=== PATIENT | female | born 1955 | race Caucasian/White ===

== ENCOUNTER 2017-01-19 05:54 | Day surgery (SDC) | payer BC ==
[~2017-01-19] VITALS: Ht 157.5 cm; Wt 62.2 kg
[2017-01-19 06:53] VITALS: Ht 157.5 cm; Wt 62.2 kg
[2017-01-19] MEDS ORDERED: ATORVASTATIN (06:58)
[2017-01-19] MEDS ORDERED: HYDROCHLOROTHIAZIDE (06:58)
[2017-01-19] MEDS ORDERED: LEVOTHYROXINE (06:58)
[2017-01-19] MEDS ORDERED: AMLODIPINE (06:58)
[2017-01-19 07:23] VITALS: BP 134/68; PULSE 60; RESP 14
--- NOTE | 2017-01-19 07:53 | OPPN ---
Date/Time of Note Date/Time of Note DATE: 01/19/17 TIME: 07:51 Operative Report Preoperative Diagnosis Rectal bleeding Postoperative Diagnosis Internal and external hemorrhoids Diverticulosis of the colon Operation/Procedure Performed Colonoscopy Surgeon see signature line legal administrative assistant None Anesthesia: moderate sedation Estimated blood loss: none Transfusion Required none Specimen None Grafts/Implants none Complications none ISRAEL VIRGEN MD Jan 19, 2017 07:53
--- NOTE | 2017-01-19 07:53 | OPPN ---
Date/Time of Note Date/Time of Note DATE: 01/19/17 TIME: 07:51 Operative Report Preoperative Diagnosis Rectal bleeding Postoperative Diagnosis Internal and external hemorrhoids Diverticulosis of the colon Operation/Procedure Performed Colonoscopy Surgeon see signature line child care [facility] assistant director None Anesthesia: moderate sedation Estimated blood loss: none Transfusion Required none Specimen None Grafts/Implants none Complications none ISRAEL VIRGEN MD Jan 19, 2017 07:53
--- NOTE | 2017-01-19 07:53 | OPPN ---
Date/Time of Note Date/Time of Note DATE: 01/19/17 TIME: 07:51 Operative Report Preoperative Diagnosis Rectal bleeding Postoperative Diagnosis Internal and external hemorrhoids Diverticulosis of the colon Operation/Procedure Performed Colonoscopy Surgeon see signature line patient support assistant None Anesthesia: moderate sedation Estimated blood loss: none Transfusion Required none Specimen None Grafts/Implants none Complications none ISRAEL VIRGEN MD Jan 19, 2017 07:53
[2017-01-19] MEDS ORDERED: FENTAnyl 50 MCG/ML VIAL ONE (07:57)
[2017-01-19] MEDS ORDERED: MIDAZOLAM 1 MG/ML 2 ML INJ ONE (07:57)
[2017-01-19 08:14] VITALS: BP 107/59; PULSE 59; RESP 14
--- NOTE | 2017-01-19 09:36 | GILP ---
DATE OF PROCEDURE: NAME OF PROCEDURE: Colonoscopy. SURGEON: Israel Diamond MD PREOPERATIVE DIAGNOSES: Rectal bleeding. POSTOPERATIVE DIAGNOSES 1. Colonoscopy all the way to the cecum. 2. Internal and external hemorrhoids. 3. Diverticulosis of the colon. INDICATION FOR THE PROCEDURE: Mr. Ayesha Olmos is a 61-year-old female patient who had rectal blee ding. The patient was scheduled for colonoscopy for further evaluation. The procedure and possible complications are well explained to the patient, she understood and conse nted to the procedure. DESCRIPTION OF PROCEDURE: Under the influence of fentanyl and Versed, the colonoscope was carefully introduced in the rectum and under direct vision, it was advanced all the way to the cecum. FINDINGS: The patient had internal and external hemorrhoids. She was noted to have diverticulosis of the colon. She tolerated the procedure very well and there was no complication from the procedure. At the end of the procedure, she was awake with stable vital signs and she was discharged home to the care of h er family. IMPRESSION: 1. Colonoscopy all the way to the cecum. 2. Internal and external hemorrhoids. 3. Diverticulosis of the colon. PLAN: 1. Lidocaine 5% cream or ointment q.i.d. p.r.n. for pain. 2. Sitz bath. 3. If the symptoms continue, may consider hemorrhoidectomy. Dictated By: ISRAEL WINTERS/YENNY Conf#: [id number] DID#: [id number]
--- NOTE | 2017-01-20 08:01 | CONS ---
DATE OF ADMISSION: 01/19/2017 DATE OF CONSULTATION: PATIENT NAME: TRACI BERRY TYPE OF CONSULTATION: Preoperative gastroenterology. Dear : I thank you very much for this kind referral. HISTORY OF PRESENT ILLNESS: Ms. Traci Berry is a 61-year-old female patient who has been referred to me for further evaluation of rectal bleeding. No past history of colon neoplasm. Her appetite has been good and she is not losing any weight. No upper abdominal pain, nausea or vomiting, no his tory of peptic ulcer disease, not on nonsteroidal anti-inflammatory agents. No history of gallstone s or liver disease, hypertensive. Not a diabetic, no heart disease or lung problem. No kidney dise ase. She has hyperlipidemia and hypothyroidism. She is status post hysterectomy, nonsmoker. No al cohol abuse, no family history of gastrointestinal tract neoplasm. NO DRUG ALLERGIES. MEDICATIONS: 1. Amlodipine. 2. Hydrochlorothiazide. 3. Atorvastatin. 4. Levothyroxine. PHYSICAL EXAMINATION: VITAL SIGNS: She is 5 feet 2 inches tall and weighs 138 pounds, normal heart sounds. LUNGS: Clear. ABDOMEN: Soft. No masses, normal bowel sounds. RECTAL: Examination deferred per the patient's request. NEUROLOGIC: Normal exam. IMPRESSION: 1. Rectal bleeding. 2. The patient never had screening colonoscopy. 3. Hypertension. 4. Hyperlipidemia. 5. Hypothyroidism. 6. Status post hysterectomy. PLAN: 1. Colonoscopy for further evaluation. Rectal examination deferred per the patient's request. It will be done at the time of colonoscopy. 2. Lidocaine 5% cream ointment q.i.d. p.r.n. The procedure and possible complications are well explained to the patient and the family. They und erstand and consent to the procedure. I thank you once again. With warmest personal regards, Dictated By: ISRAEL WINTERS/YENNY Conf#: [id number] DID#: [id number]
== END 2017-01-19 10:33 | disposition home or self-care (01) ==
LOC: GIL 05:54
PROVIDERS: ATTEND Internal Medicine Gastroenterology
DX: K64.8 Other hemorrhoids (principal); K57.90 Diverticulosis of intestine, part unspecified, without perforation or abscess without bleeding; I10 Essential (primary) hypertension; E78.5 Hyperlipidemia, unspecified; E03.9 Hypothyroidism, unspecified
CPT/HCPCS: 45378; J2250; J3010

== ENCOUNTER 2017-01-21 09:34 | Inpatient (IN) | payer BC ==
[~2017-01-21] VITALS: Ht 157.5 cm; Wt 70.0 kg
[~2017-01-21 09:34] MED LIST: AMLODIPINE; ATORVASTATIN; HYDROCHLOROTHIAZIDE; LEVOTHYROXINE
[2017-01-21] MEDS ORDERED: morphine 4 MG/ML VIAL IV STA (10:07)
[2017-01-21] MEDS ORDERED: ONDANSETRON 4 MG INJ IV STA ×3 (10:07→13:38)
[2017-01-21] MEDS ORDERED: SOD CHLORIDE 0.9% 1,000 ML IV STA (10:07)
[2017-01-21] MEDS ORDERED: LEVO50TA74 PO (10:45)
[2017-01-21] MEDS ORDERED: HYDR25TA6 PO (10:45)
[2017-01-21] MEDS ORDERED: IOHEXOL 300MG/ML 150 ML BTL ONE (10:49)
[2017-01-21] MEDS ORDERED: SOD CHLORIDE 0.9% 100 ML ONE (10:49)
[2017-01-21] MEDS ORDERED: HYDROmorphONE 1 MG/ML SYG IV STA (10:53)
--- NOTE | 2017-01-21 11:21 | RADRPT ---
PROCEDURE: CT Abdomen and Pelvis with contrast. CLINICAL INDICATION: Abdominal pain. TECHNIQUE: CT scan of the abdomen and pelvis with contrast was performed on a multi-detector high- resolution CT scanner. The patient was scanned following the intravenous administration of 90 cc of Omnipaque 300. Per the technologist, some of the contrast infiltrated. Coronal and sagittal reform atted images were obtained from the axial source images. One or more of the following dose reduction techniques were used: Automated exposure control, adjustment of the mA and/or kV according to patel ent size, use of iterative reconstruction technique. Images were reviewed on a high-resolution PACS workstation. The total exam CTDI equals 8.13 mGy and the total exam DLP equals 458.79 mGy-cm. COMPARISON: None available. FINDINGS: CT abdomen: Minimal bilateral lower lobe dependent atelectatic changes are present. Otherwise, the lung bases are clear. The heart size is normal, without pericardial thickening or effusion. There is a small hiatal hernia. The liver is normal in size and density without focal mass or intrahepatic biliary dilatation. The spleen is normal in size and homogeneous in density. The stomach is partially collapsed, but is megha ssly unremarkable. The pancreas as visualized is normal. The gallbladder is unremarkable. The melvi iary tree is unremarkable without evidence for biliary dilatation. The adrenal glands are symmetric and normal. The kidneys are unremarkable. No renal calculus or obstructive uropathy or mass lesio n is seen. The aorta is of normal caliber. There is no retroperitoneal lymphadenopathy. The mya hepatis re gion is clear. The small bowel and mesentery, as visualized, are unremarkable. CT pelvis: The small bowel loops situated within the pelvis are unremarkable. The uterus is absent. The pelvi c sidewalls and inguinal regions are clear. There is a acute inflammation of a diverticulum within the proximal sigmoid colon with adjacent yaritza diverticular fat stranding and colonic wall edema. The re is no evidence of free air or abscess. The appendix is normal. No mass, lymphadenopathy, or free fluid is seen. The bladder is normal. The surrounding osseous structures are unremarkable. No osteolytic or osteoblastic lesion is detect ed. IMPRESSION: 1. Acute diverticulitis involving the proximal sigmoid colon. No evidence of associated abscess or free intraperitoneal air. 2. Small hiatal hernia. RPTAT: JJ .Vern Mullins MD, MD Date Time Electronically viewed and signed by .Vern Mullins MD, MD on 01/21/2017 11:20 .A/
[2017-01-21] MEDS ORDERED: KETOROLAC 30 MG INJ IV STA (11:24)
[2017-01-21] MEDS ORDERED: HYDR-906 PO (11:28)
[2017-01-21] MEDS ORDERED: METR500T14 PO (11:28)
[2017-01-21] MEDS ORDERED: CIPR500T4 PO (11:28)
[2017-01-21] MEDS ORDERED: CIPROFLOXACIN 400MG/D5W 200 ML IVPB ONE (11:30)
[2017-01-21] MEDS ORDERED: metroNIDAZOLE 500 MG/NS (PMX) 100 ML IVPB ONE (11:30)
--- NOTE | 2017-01-21 13:02 | ERD ---
ER Documentation Chief Complaint Chief Complaint ABD PAIN X 2 DAYS WITH NAUSEA/VOMITING HPI This is a very pleasant 61-year-old female that presents to the emergency department complaining of a sudden onset of severe abdominal pain that is progressively worsened over the past 48 hours. 2 days ago the patient underwent colonoscopy performed by Dr. Hutchins. The patient indicated there is no complications with the colonoscopy. She states several hours after she developed a sudden onset of severe pain most prominent in the left lower quadrant with nausea and a decrease in appetite. She has had no fevers no shaking or chills. She denies any shortness of breath at rest or exertion. She denies any chest pain or pressure that radiates to the neck arm back or jaw. She indicates that the pain is a sharp shooting pain, 10 out of 10 in intensity with no alleviating or exacerbating factors. Denies any hemoptysis hematemesis or melanotic stools. ROS All systems reviewed and are negative except as per history of present illness. Medications Home Meds Active Scripts Metronidazole* (Metronidazole*) 500 Mg Tablet, 500 MG PO BID, #20 TAB Prov:ADRIANNE ALVAREZ 01/21/17 Ciprofloxacin Hcl* (Ciprofloxacin Hcl*) 500 Mg Tablet, 500 MG PO BID for 10 Days , TAB Prov:ADRIANNE ALVAREZ 01/21/17 Hydrocodone/Acetaminophen (Quilcene 5-325 Tablet) 1 Each Tablet, 1 TAB PO Q6H Y for PAIN, #20 TAB Prov:ADRIANNE ALVAREZ 01/21/17 Reported Medications Levothyroxine Sodium* (Levothyroxine Sodium*) 50 Mcg Tablet, 50 MCG PO BEFORE BREAKFAST, #30 TAB 01/21/17 Hydrochlorothiazide* (Hydrochlorothiazide*) 25 Mg Tab, 25 MG PO DAILY, #30 TAB 01/21/17 Discontinued Reported Medications [Amlodipine] No Conflict Check 01/19/17 [Levothyroxine] No Conflict Check 01/19/17 [Hydrochlorothiazide] No Conflict Check 01/19/17 [Atorvastatin] No Conflict Check 01/19/17 Allergies Allergies: Coded Allergies: No Known Allergy (Unverified , 01/19/17) PMhx/Soc History of Surgery: Yes (HYSTERECTOMY) Anesthesia Reaction: No Hx Neurological Disorder: No Hx Respiratory Disorders: No Hx Cardiac Disorders: Yes (HYPERTENSION) Hx Psychiatric Problems: No Hx Miscellaneous Medical Probl: Yes (HYPERLIPIDEMIA, Hypothyroidism.) Hx Alcohol Use: No Hx Substance Use: No Hx Tobacco Use: No Smoking Status: Never smoker Physical Exam Vitals Vital Signs Date Time Temp Pulse Resp B/P Pulse Ox O2 Delivery O2 Flow Rate FiO2 01/21/17 13:03 65 18 90/58 100 Nasal Cannula 2.0 01/21/17 09:37 99.2 77 18 159/85 98 Physical Exam Constitutional:Well-developed. Well-nourished. She appear to be in a significant amount of discomfort secondary to pain. Tearful HEENT:Normocephalic. Atraumatic.Pupils were equal round reactive to light. Moist mucous membranes.No tonsillar exudates. Neck: No nuchal rigidity. No lymphadenopathy. No posterior cervical spine tenderness or step-offs. Respiratory: Not using accessory muscles of respiration.Lungs were clear to auscultation bilaterally. No rhonchi. No rales. No wheezing. Cardiovascular: Regular rate regular rhythm.No murmurs. No rubs were appreciated.S1, S2 normal. Distal pulses are palpable 2+ bilaterally. GI: Abdomen was soft. Tenderness in the left lower quadrant. Non Distended. No pulsatile abdominal masses or bruits. No rebound. No guarding. Bowel sounds were present and normal. Muscle skeletal: Full range of motion of both the upper and lower extremities bilaterally.Normal muscle tone.No assymetrical calf tenderness or swelling. Skin: No petechia, no purpura. No lesions on the palms or the soles of the feet. No maculopapular rash. NEURO: Patient was alert, awake, orientated x3.No facial droop. Gait observed and normal with no ataxia.Speech had regular rate and rhythm. No focal neurological deficits. Result Diagram: 01/21/17 1000 01/21/17 1000 Results 24 hrs Laboratory Tests Test 01/21/17 10:00 White Blood Count 11.610^3/ul Red Blood Count 4.3010^6/ul Hemoglobin 12.9g/dl Hematocrit 38.1% Mean Corpuscular Volume 88.6fl Mean Corpuscular Hemoglobin 30.0pg Mean Corpuscular Hemoglobin Concent 33.9g/dl Red Cell Distribution Width 12.1% Platelet Count 13303^3/UL Mean Platelet Volume 11.9fl Neutrophils % 74.9% Lymphocytes % 18.8% Monocytes % 5.3% Eosinophils % 0.4% Basophils % 0.3% Nucleated Red Blood Cells % 0.0/100WBC Neutrophils # 8.710^3/ul Lymphocytes # 2.210^3/ul Monocytes # 0.610^3/ul Eosinophils # 0.110^3/ul Basophils # 0.010^3/ul Nucleated Red Blood Cells # 0.010^3/ul Prothrombin Time 12.7Sec Prothrombin Time Ratio 1.0 INR International Normalized Ratio 0.95 Activated Partial Thromboplast Time 30.4Sec Sodium Level 144mmol/L Potassium Level 3.6mmol/L Chloride Level 101mmol/L Carbon Dioxide Level 30mmol/L Anion Gap 17 Blood Urea Nitrogen 9mg/dl Creatinine 0.73mg/dl Glucose Level 98mg/dl Calcium Level 9.4mg/dl Total Bilirubin 1.2mg/dl Direct Bilirubin 0.00mg/dl Indirect Bilirubin 1.2mg/dl Aspartate Amino Transf (AST/SGOT) 25IU/L Alanine Aminotransferase (ALT/SGPT) 29IU/L Alkaline Phosphatase 79IU/L Troponin I < 0.012ng/ml Total Protein 8.2g/dl Albumin 4.7g/dl Globulin 3.50g/dl Albumin/Globulin Ratio 1.34 Amylase Level 91U/L Lipase 128U/L Current Medications Medications (Trade) Dose Ordered Sig/Buzz Route PRN Reason Start Time Stop Time Status Last Admin Dose Admin Sodium Chloride (NS) 1,000 ml @ 1,000 mls/hr Q1H STAT IV 01/21/17 10:07 01/21/17 11:06 DC 01/21/17 10:13 Morphine Sulfate (morphine) 4 mg ONCE STAT IV 01/21/17 10:07 01/21/17 10:08 DC 01/21/17 10:13 Ondansetron HCl (Zofran Inj) 4 mg ONCE STAT IV 01/21/17 10:07 01/21/17 10:08 DC 01/21/17 10:13 IV Flush 10 ml 10 ml STK-MED ONCE .ROUTE 01/21/17 10:49 01/21/17 10:50 DC 01/21/17 10:59 Sodium Chloride (NS) 100 ml @ ud STK-MED ONCE .ROUTE 01/21/17 10:49 01/21/17 10:50 DC 01/21/17 11:00 Iohexol (Omnipaque 300mg/ ml) 150 ml STK-MED ONCE .ROUTE 01/21/17 10:49 01/21/17 10:50 DC 01/21/17 11:00 Hydromorphone HCl (Dilaudid) 1 mg ONCE STAT IV 01/21/17 10:53 01/21/17 10:54 DC 01/21/17 11:17 Ondansetron HCl 4 mg 4 mg ONCE STAT IV 01/21/17 10:53 01/21/17 10:54 DC 01/21/17 11:17 Ciprofloxacin/ Dextrose 200 ml @ 200 mls/hr ONCE ONCE IVPB 01/21/17 11:30 01/21/17 12:29 DC 01/21/17 11:30 Metronidazole (Flagyl 500 Mg (Pmx)) 100 ml @ 100 mls/hr ONCE ONCE IVPB 01/21/17 11:30 01/21/17 12:29 DC 01/21/17 11:43 Ketorolac Tromethamine (Toradol) 30 mg ONCE STAT IV 01/21/17 11:24 01/21/17 11:33 DC 01/21/17 11:43 Ondansetron HCl (Zofran Inj) 4 mg ONCE STAT IV 01/21/17 13:38 01/21/17 13:39 DC 01/21/17 13:47 Procedures/MDM This patient presented to the emergency department with abdominal pain and was seen and evaluated by myself. My differential diagnosis included but was not limited to abdominal aortic aneurysm, appendicitis, pancreatitis, perforated peptic ulcer, perforated viscus, Boerhaaves syndrome or visceral pain such as diverticulitis, DKA, esophagitis, hepatitis or bowel obstruction. The patient was placed on a diagnostic cardiac sonographer, continuous pulse oximetry, and IV access was established by nursing staff. The patient was given intravenous morphine and Zofran with no improvement of her discomfort and therefore was given Dilaudid. CT scan of the abdomen due to the severity of her pain which was read by the radiologist reviewed by myself and indicated diverticulitis without perforation. The patient was given IV ciprofloxacin and Flagyl. I also obtained a 12-lead EKG tracing to rule out atypical myocardial infarction. 12 Lead EKG tracing ordered and reviewed by myself showed: Normal sinus rhythm of 75 bpm and no arrhythmia. NE interval normal. QRS duration normal. No ST segment elevation No ST segment depression. No changes consistent with acute ischemia. Plan was to discharge the patient home however and 1:50 PM at the time of discharge the patient dated she had recurrence of the pain and had an episode of nonbloody nonbilious emesis. The patient attempted to tolerate oral intake but was unable to do so successfully. Therefore I did feel the patient required admission for continuous IV fluids and analgesic medication. She will be admitted to the hospitalist in serious condition with an anticipated stay of greater than 2 midnights. Departure Diagnosis: Primary Impression: Diverticulitis Diverticulitis site: large intestine Diverticulitis bleeding: without bleeding Diverticulitis complication: without perforation or abscess Qualified Code: K57.32 - Diverticulitis of large intestine without perforation or abscess without bleeding Condition: Fair Patient Instructions: Understanding Diverticulosis and Diverticulitis, Diverticulitis ADRIANNE ALVAREZ Jan 21, 2017 13:02
[2017-01-21 14:18] VITALS: TEMP 99.2
[2017-01-21 14:58] VITALS: Ht 157.5 cm; Wt 70.0 kg
[2017-01-21] MEDS ORDERED: morphine 2 MG INJ IV PRN (15:00)
[2017-01-21] MEDS ORDERED: NACL 0.9% 3 ML SYG IV SCH (15:00)
[2017-01-21] MEDS ORDERED: BISACODYL 10 MG SUPP PR PRN (15:00)
[2017-01-21] MEDS ORDERED: ACETAMINOPHEN 650 MG SUPP PR PRN (15:00)
[2017-01-21] MEDS ORDERED: ONDANSETRON 4 MG INJ IV PRN (15:00)
--- NOTE | 2017-01-21 15:11 | HP ---
Date/Time of Note Date/Time of Note DATE: 01/21/17 TIME: 15:04 Assessment/Plan VTE Prophylaxis VTE Prophylaxis Intervention: SCD's Lines/Catheters IV [facility]from [facility] Saline Lock Assessment/Plan Chief Complaint/Hosp Course 61-year-old female with a history of diverticulosis, internal/external hemorrhoids presented to the emergency room with intractable left upper quadrant abdominal pain associated with a one-time nonbilious, nonbloody vomiting in the emergency room. Patient had a colonoscopy done 2 days ago. 1. Acute diverticulitis of sigmoid colon. Colonoscopy (done as outpt 01/19/17) with Diverticulosis/Internal/External hemorrhoids. -Admit as inpatient. Strict bowel rest, IV fluids, pain medications and IV Cipro plus Flagyl. -Obtain blood and urine cultures. 2. Essential hypertension. Currently her blood pressure is stable. -We will resume home medication once patient is stable for oral. Will treat with PRN hydralazine if indicated. 3. Hypothyroidism. -We will hold Synthroid until stable for oral. We will obtain a TSH level. 4. Leukocytosis, mild. Likely secondary to #1. Treatment as per #1. 5. Internal/external hemorrhoids. Currently no rectal bleed. -PRN laxatives and stool softeners. PPI prophylaxis: IV Pepcid. Plan: Patient will be admitted to medical surgical floor. She will be kept strict n.p.o. and will be treated with IV fluids, pain medications and IV Cipro and Flagyl. I have also left a message to patient's electrical engineering technologist about his admission as patient had a very recent colonoscopy 2 days ago. Rest of the management depend on hospital course. Approximately 60 minutes was spent on this history and physical. Patient was seen in collaboration with . Problems: HPI/ROS Admit Date/Time Admit Date/Time Hx of Present Illness This is a 61-year-old [facility] female with a past medical history hypertension , hypothyroidism, GI bleed with internal and external hemorrhoids, diverticulosis of the colon, who was brought to the emergency room with left upper quadrant and epigastric pain associated with nausea and vomiting started yesterday. Apparently, patient had a colonoscopy done on 01/19/2017 here at [facility] by and was on treatment for hemorrhoids. Patient denied any melena, hematochezia, hematemesis, dysuria, hematuria, chest pain, shortness of breath, palpitation, dizziness, loss of consciousness or other constitutional symptoms. At present, patient has abdominal pain 7 out of 10. She does not have any nausea or vomiting at this moment. Initial labs grossly unremarkable except for slightly elevated WBC 11,600. Patient also had indirect bilirubin 1.2 with direct bilirubin 0. She also had a temperature 99.2, otherwise vital signs unremarkable. A CT abdomen and pelvis with contrast showed acute diverticulitis involving the proximal sigmoid colon. There was no evidence of associated abscess or free intraperitoneal air. There was small hiatal hernia on the CT. Patient was given pain medications and IV Cipro and Flagyl in the emergency room and a clinical decision was made to admit for further evaluation. ROS A 12 point review of system was assessed and is negative other than what is mentioned in the HPI. PMH/Family/Social Past Medical History See HPI Past Surgical History See HPI Social History Patient denied any history of alcohol, smoking or illicit drug use. Smoking Status: Never smoker Exam/Review of Systems Vital Signs Vitals Vital Signs Date Time Temp Pulse Resp B/P Pulse Ox O2 Delivery O2 Flow Rate FiO2 01/21/17 14:18 99.2 51 16 101/80 98 Room Air Nasal Cannula 01/21/17 13:03 2.0 Exam Exam General: Well developed,adequately built, not in any acute distress . HEENT: Normocephalic, Atraumatic, No laceration or hematoma; Eyes: PEERL, Conjunctiva clear, Anicteric sclera Neck: Supple without any lymphadenopathy, nontender, no JVD, no carotid bruits, trachea midline, no thyromegaly Cardiac: S1, S2 auscultated, regular rhythm and rate, no mumurs or gallop Pulmonary: Normal respiratory effort. Chest clear to auscultation bilaterally, no adventitious breath sounds GI: With diffuse left upper quadrant and epigastric abdominal tenderness. Soft , non- distended, no masses, no rebound tenderness or guarding. Bowel sounds active on all four quadrants Genitourinary: Deferred Extremities: No cyanosis, clubbing, or edema. Pulses [2+] bilaterally. Full ROM on all four extremities. No focal weakness appreciated. Neurologic: Alert to person, place, time, and situation. Affect appropriate, intact sensation. Skin: Clean,dry, and intact. No ecchymosis, no rashes, or lesions Labs Result Diagram: 01/21/17 1000 01/21/17 1000 ABE PELAYO NP Jan 21, 2017 15:11 ABE PELAYO NP Jan 21, 2017 15:11
[2017-01-21 15:43] VITALS: BP 119/60; PULSE 67; RESP 18
[2017-01-21] MEDS: SOD CHLORIDE 0.9% 1,000 ML IV SCH (16:33)
[2017-01-21 20:00] VITALS: BP 124/63; RESP 20
[2017-01-21] MEDS: CIPROFLOXACIN 400MG/D5W 200 ML IVPB SCH (20:56)
[2017-01-21] MEDS: FAMOTIDINE 20 MG INJ IV SCH (20:56)
[2017-01-21] MEDS: metroNIDAZOLE 500 MG/NS (PMX) 100 ML IVPB SCH (22:17)
[2017-01-22 02:00] VITALS: BP 112/61; RESP 20
[2017-01-22] MEDS: SOD CHLORIDE 0.9% 1,000 ML IV SCH (05:20)
[2017-01-22] MEDS: metroNIDAZOLE 500 MG/NS (PMX) 100 ML IVPB SCH ×3 (05:39→21:52)
[2017-01-22 08:00] VITALS: BP 123/59; RESP 17
[2017-01-22] MEDS: CIPROFLOXACIN 400MG/D5W 200 ML IVPB SCH ×2 (08:20→21:52)
[2017-01-22] MEDS: FAMOTIDINE 20 MG INJ IV SCH ×2 (08:20→21:52)
--- NOTE | 2017-01-22 10:28 | PN ---
Date/Time of Note Date/Time of Note DATE: 01/22/17 TIME: 10:25 Assessment/Plan VTE Prophylaxis VTE Prophylaxis Intervention: ambulation Lines/Catheters [facility]from [facility]): Peripheral IV Urinary Cath still in place: No Assessment/Plan Chief Complaint/Hosp Course 61-year-old female with a history of diverticulosis, internal/external hemorrhoids presented to the emergency room with intractable left upper quadrant abdominal pain associated with a one-time nonbilious, nonbloody vomiting in the emergency room. Patient had a colonoscopy done 2 days ago. 1. Acute diverticulitis of sigmoid colon. Clinically improving. Colonoscopy (done as outpt 01/19/17) with Diverticulosis/Internal/External hemorrhoids. -Today we will change her diet to n.p.o. except ice chips and medications. If she continues to improve, will start introducing clear diet and advance as tolerated. Meanwhile continue IV fluids, pain medications and IV Cipro plus Flagyl. -Follow-up blood and urine cultures. 2. Essential hypertension. Currently her blood pressure is stable. -resume home medication 3. Hypothyroidism. - Patient with a low TSH, we will also add T3 and T4 to the labs. Resume Synthroid and titrate dose per labs. 4. Leukocytosis, mild. Likely secondary to #1. Resolved. 5. Internal/external hemorrhoids. Currently no rectal bleed. -PRN laxatives and stool softeners. PPI prophylaxis: IV Pepcid. Plan: Overall, patient with significant improvement in abdominal pain. We are going to change her diet to n.p.o. except ice chips and medications. We will start clear diet soon and advance as tolerated . 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 Patient was seen in collaboration with . Problems: Subjective 24 Hr Interval Summary Free Text/Dictation Patient with significant improvement in abdominal pain. He reports 0 out of 10 pain now. Her last morphine was around 3 hours ago. Exam/Review of Systems Vital Signs Vitals Vital Signs Date Time Temp Pulse Resp B/P Pulse Ox O2 Delivery O2 Flow Rate FiO2 01/22/17 08:00 98.0 65 17 123/59 97 01/21/17 15:43 Nasal Cannula 2.0 Intake and Output 01/21/17 01/21/17 01/22/17 15:00 23:00 07:00 Intake Total 100 ml Balance 100 ml Exam General: Well developed,adequately built, not in any acute distress . HEENT: Normocephalic, Atraumatic, No laceration or hematoma; Eyes: PEERL, Conjunctiva clear, Anicteric sclera Neck: Supple without any lymphadenopathy, nontender, no JVD, no carotid bruits, trachea midline, no thyromegaly Cardiac: S1, S2 auscultated, regular rhythm and rate, no mumurs or gallop Pulmonary: Normal respiratory effort. Chest clear to auscultation bilaterally, no adventitious breath sounds GI: Soft, nontender, non- distended, no masses, no rebound tenderness or guarding. Bowel sounds active on all four quadrants Genitourinary: Deferred Extremities: No cyanosis, clubbing, or edema. Pulses [2+] bilaterally. Full ROM on all four extremities. No focal weakness appreciated. Neurologic: Alert to person, place, time, and situation. Affect appropriate, intact sensation. Skin: Clean,dry, and intact. No ecchymosis, no rashes, or lesions Results Result Diagram: 01/22/17 0543 01/22/17 0543 Results 24 hrs Laboratory Tests Test 01/22/17 05:43 White Blood Count 10.2 Red Blood Count 3.33 #L Hemoglobin 10.1 #L Hematocrit 30.1 #L Mean Corpuscular Volume 90.4 Mean Corpuscular Hemoglobin 30.3 Mean Corpuscular Hemoglobin Concent 33.6 Red Cell Distribution Width 12.2 Platelet Count 148 # Mean Platelet Volume 12.4 H Neutrophils % 68.8 Lymphocytes % 24.6 Monocytes % 5.5 Eosinophils % 0.3 Basophils % 0.2 Nucleated Red Blood Cells % 0.0 Neutrophils # 7.0 Lymphocytes # 2.5 Monocytes # 0.6 Eosinophils # 0.0 Basophils # 0.0 Nucleated Red Blood Cells # 0.0 Sodium Level 142 Potassium Level 3.4 L Chloride Level 108 Carbon Dioxide Level 28 Anion Gap 9 # Blood Urea Nitrogen 10 Creatinine 0.71 Glucose Level 86 Hemoglobin A1c 5.5 Calcium Level 8.4 Phosphorus Level 3.6 Magnesium Level 1.9 Total Bilirubin 0.9 Direct Bilirubin 0.00 Indirect Bilirubin 0.9 Aspartate Amino Transf (AST/SGOT) 19 Alanine Aminotransferase (ALT/SGPT) 33 Alkaline Phosphatase 53 Total Protein 6.3 # Albumin 3.2 #L Globulin 3.10 Albumin/Globulin Ratio 1.03 Triglycerides Level 65 Cholesterol Level 115 LDL Cholesterol, Calculated 64 HDL Cholesterol 38 Cholesterol/HDL Ratio 3.0 Thyroid Stimulating Hormone (TSH) 0.438 L Medications Medications Current Medications Sodium Chloride (NS) 1,000 ml @ 75 mls/hr [id number] IV Last administered on 01/21 16:33; Admin Dose 75 MLS/HR; Start 01/21/17 at 16:00 Ondansetron HCl (Zofran Inj) 4 mg Q6H PRN IV NAUSEA AND/OR VOMITING; Start 01/21/17 at 15:00 Acetaminophen (Tylenol Supp) 650 mg Q6H PRN [place] PAIN LEVEL 1-3 OR FEVER; Start 01/21/17 at 15:00 Morphine Sulfate (morphine) 2 mg Q4H PRN IV SEVERE PAIN LEVEL 7-10 Last administered on 01/22/17 08:20; Admin Dose 2 MG; Start 01/21/17 at 15:00 Bisacodyl (Dulcolax Supp) 10 mg DAILY PRN [place] CONSTIPATION; Start 01/21/17 at 15 :00 Famotidine 20 mg 20 mg Q12 IV Last administered on 01/22/17 08:20; Admin Dose 20 MG; Start 01/21/17 at 21:00 Ciprofloxacin/ Dextrose 200 ml @ 200 mls/hr Q12 IVPB Last administered on 01/22 08:20; Admin Dose 200 MLS/HR; Start 01/21/17 at 21:00 Metronidazole (Flagyl 500 Mg (Pmx)) 100 ml @ 100 mls/hr Q8 IVPB Last administered on 01/22/17 05:39; Admin Dose 100 MLS/HR; Start 01/21/17 at 22:00 ABE PELAYO NP Jan 22, 2017 10:28 ABE PELAYO NP Jan 22, 2017 10:28
[2017-01-22] MEDS ORDERED: HYDROmorphONE 1 MG/ML SYG IV PRN (10:30)
[2017-01-22] MEDS: HYDROCHLOROTHIAZIDE 25 MG TAB PO SCH (11:00)
[2017-01-22] MEDS ORDERED: morphine 2 MG INJ IV PRN (11:00)
[2017-01-22] MEDS ORDERED: POTASSIUM CHLORIDE 20 MEQ in SOD CHLORIDE 0.9% 100 ML IVPB ONE (12:00)
[2017-01-22] MEDS: NS + KCL 20 MEQ 1,000 ML IV SCH (12:51)
[2017-01-22 14:00] VITALS: BP 141/64; RESP 18
[2017-01-22 20:00] VITALS: BP 154/72; RESP 20
[2017-01-23] MEDS: NS + KCL 20 MEQ 1,000 ML IV SCH ×3 (00:20→18:40)
[2017-01-23 02:00] VITALS: BP 117/56; RESP 20
[2017-01-23] MEDS ORDERED: LEVOTHYROXINE 50 MCG TAB ONE (05:14)
[2017-01-23] MEDS: LEVOTHYROXINE 50 MCG TAB PO SCH (05:30)
[2017-01-23] MEDS: HYDROCHLOROTHIAZIDE 25 MG TAB PO SCH (05:30)
[2017-01-23] MEDS: metroNIDAZOLE 500 MG/NS (PMX) 100 ML IVPB SCH ×3 (05:30→21:59)
[2017-01-23 08:00] VITALS: BP 106/50; RESP 18
[2017-01-23] MEDS ORDERED: HYDROCHLOROTHIAZIDE 25 MG TAB PO SCH (09:00)
[2017-01-23] MEDS: CIPROFLOXACIN 400MG/D5W 200 ML IVPB SCH ×2 (09:30→20:10)
[2017-01-23] MEDS: FAMOTIDINE 20 MG INJ IV SCH ×2 (09:30→20:10)
[2017-01-23 14:00] VITALS: BP 126/65; RESP 19
--- NOTE | 2017-01-23 17:23 | PN ---
Date/Time of Note Date/Time of Note DATE: 01/23/17 TIME: 17:22 Assessment/Plan VTE Prophylaxis VTE Prophylaxis Intervention: SCD's Lines/Catheters [facility] Peripheral IV Urinary Cath still in place: No Assessment/Plan Chief Complaint/Hosp Course 1. Acute diverticulitis of the sigmoid colon. Continue Cipro and Flagyl. The patient tolerating clear liquids. Advance diet. Continue IV hydration. Continue pain control. Status post colonoscopy on 01/19/2017 that showed diverticulosis along with internal and external hemorrhoids. 2. Essential hypertension. Continue antihypertensives. Blood pressure stable. 3. Hypothyroidism. On Synthroid. TSH level low. Will repeat TSH and free T4. If TSH is still low, consider decreasing the Synthroid dose. 4. Fluids, electrolytes, and nutrition. Currently on clear liquids. Advance diet. IV hydration. 5. DVT prophylaxis. Bilateral sequential compression devices. 6. Plan. Continue current management. Advance diet. Plan of care was explained to the patient's family in detail. Case discussed with Dr. Simpson. Problems: Subjective 24 Hr Interval Summary Free Text/Dictation Complains of minimal abdominal pain. Tolerating oral intake. No rectal bleed. Exam/Review of Systems Vital Signs Vitals Vital Signs Date Time Temp Pulse Resp B/P Pulse Ox O2 Delivery O2 Flow Rate FiO2 01/23/17 14:00 98.3 83 19 126/65 95 01/21/17 15:43 Nasal Cannula 2.0 Intake and Output 01/22/17 01/22/17 01/23/17 15:00 23:00 07:00 Intake Total 775 ml 560 ml 700 ml Balance 775 ml 560 ml 700 ml Exam General: Adequately build 61 year-old female lying in bed in no apparent distress. HEENT: Normocephalic, atraumatic. Eyes: Anicteric sclerae, conjunctivae clear. ENT: Nasal septum midline, oral mucosa moist. Neck supple, no JVD noticed. Respiratory: Bilaterally clear breath sounds. No use of accessory muscles of respiration. No adventitious breath sounds. Cardiovascular: S1, S2 heard. No murmurs or gallops. Abdomen: Sof and nondistended. Bowel sounds positive in all 4 quadrants. Left lower quadrant tenderness. Genitourinary: Deferred. Extremities: No cyanosis, no clubbing, no edema. Peripheral pulses palpable. Neurologic: Cranial nerves II through XII grossly intact. The patient is awake, alert, and oriented. Skin: Normal skin turgor. No skin rashes. Results Result Diagram: 01/23/1743001/23/17 0431 Results 24 hrs Laboratory Tests Test 01/23/17 04:31 White Blood Count 8.3 Red Blood Count 3.51 L Hemoglobin 10.2 L Hematocrit 31.5 L Mean Corpuscular Volume 89.7 Mean Corpuscular Hemoglobin 29.1 Mean Corpuscular Hemoglobin Concent 32.4 Red Cell Distribution Width 12.2 Platelet Count 163 Mean Platelet Volume 12.9 H Neutrophils % 56.8 Lymphocytes % 35.8 Monocytes % 5.8 Eosinophils % 0.8 Basophils % 0.6 Nucleated Red Blood Cells % 0.0 Neutrophils # 4.7 Lymphocytes # 3.0 H Monocytes # 0.5 Eosinophils # 0.1 Basophils # 0.1 Nucleated Red Blood Cells # 0.0 Sodium Level 142 Potassium Level 3.9 Chloride Level 106 Carbon Dioxide Level 28 Anion Gap 12 Blood Urea Nitrogen 9 Creatinine 0.74 Glucose Level 87 Calcium Level 8.4 Magnesium Level 2.0 Medications Medications Current Medications Ondansetron HCl (Zofran Inj) 4 mg Q6H PRN IV NAUSEA AND/OR VOMITING; Start 01/21/17 at 15:00 Acetaminophen (Tylenol Supp) 650 mg Q6H PRN [place] PAIN LEVEL 1-3 OR FEVER; Start 01/21/17 at 15:00 Bisacodyl (Dulcolax Supp) 10 mg DAILY PRN [place] CONSTIPATION; Start 01/21/17 at 15 :00 Famotidine 20 mg 20 mg Q12 IV Last administered on 01/23/17 09:30; Admin Dose 20 MG; Start 01/21/17 at 21:00 Ciprofloxacin/ Dextrose 200 ml @ 200 mls/hr Q12 IVPB Last administered on 01/23 09:30; Admin Dose 200 MLS/HR; Start 01/21/17 at 21:00 Metronidazole 100 ml @ 100 mls/hr Q8 IVPB Last administered on 01/23/17 14:00 ; Admin Dose 100 MLS/HR; Start 01/21/17 at 22:00 Potassium Chloride/Sodium Chloride (NS-KCl 20 Meq) 1,000 ml @ 75 mls/hr [id number] IV Last administered on 01/22/17 12:51; Admin Dose 75 MLS/HR; Start 01/22/17 at 11:00 Morphine Sulfate (morphine) 2 mg Q4H PRN IV pain Last administered on 16:29; Admin Dose 2 MG; Start 01/22/17 at 11:00 Hydrochlorothiazide (Hydrochlorothiazide) 25 mg DAILY@06 PO Last administered on 01/23/17 05:30; Admin Dose 25 MG; Start 01/22/17 at 11:00 Influenza Virus Vaccine (Fluzone) 0.5 ml ONCE ONCE IM* ; Start 01/24/17 at 09:00 ; Stop 01/24/17 at 09:01 KEVIN DEVINE NP Jan 23, 2017 17:23
[2017-01-23 20:03] VITALS: BP 113/63; RESP 19
[2017-01-24 02:00] VITALS: BP 117/58; RESP 18
[2017-01-24] MEDS: HYDROCHLOROTHIAZIDE 25 MG TAB PO SCH (05:22)
[2017-01-24] MEDS: metroNIDAZOLE 500 MG/NS (PMX) 100 ML IVPB SCH ×3 (05:22→22:16)
[2017-01-24] MEDS: LEVOTHYROXINE 50 MCG TAB PO SCH (06:24)
[2017-01-24 08:00] VITALS: BP 144/69; RESP 19
[2017-01-24] MEDS ORDERED: INFLUENZA VIRUS VACCINE 0.5 ML (DISPENSING) IM* ONE (09:00)
[2017-01-24] MEDS: CIPROFLOXACIN 400MG/D5W 200 ML IVPB SCH ×2 (09:19→20:48)
[2017-01-24] MEDS: FAMOTIDINE 20 MG INJ IV SCH (09:19)
[2017-01-24] MEDS: NS + KCL 20 MEQ 1,000 ML IV SCH (12:04)
--- NOTE | 2017-01-24 12:38 | PN ---
Date/Time of Note Date/Time of Note DATE: 01/24/17 TIME: 12:38 Assessment/Plan VTE Prophylaxis VTE Prophylaxis Intervention: SCD's Lines/Catheters IV C[facility]ter Type (from [facility]): Peripheral IV Urinary Cath still in place: No Assessment/Plan Chief Complaint/Hosp Course 1. Acute diverticulitis of the sigmoid colon. Continue Cipro and Flagyl. The patient tolerating clear liquids. Advance diet. Continue IV hydration. Continue pain control. Status post colonoscopy on 01/19/2017 that showed diverticulosis along with internal and external hemorrhoids. 2. Essential hypertension. Continue antihypertensives. Blood pressure stable. 3. Hypothyroidism. On Synthroid. 4. Fluids, electrolytes, and nutrition. Advance diet. Stop IVF. 5. DVT prophylaxis. Bilateral sequential compression devices. 6. Plan. Continue current management. Advance diet. Start stool softeners. Stop IVFs. Plan of care was explained to the patient's family in detail. Case discussed with Dr. Simpson. Problems: Subjective 24 Hr Interval Summary Free Text/Dictation Complains of some nausea. Denies any pain. Exam/Review of Systems Vital Signs Vitals Vital Signs Date Time Temp Pulse Resp B/P Pulse Ox O2 Delivery O2 Flow Rate FiO2 01/24/17 08:00 98.7 66 19 144/69 97 01/21/17 15:43 Nasal Cannula 2.0 Intake and Output 01/23/17 01/23/17 01/24/17 15:00 23:00 07:00 Intake Total 300 ml 1700 ml 1350 ml Balance 300 ml 1700 ml 1350 ml Exam General: Adequately build 61 year-old female lying in bed in no apparent distress. HEENT: Normocephalic, atraumatic. Eyes: Anicteric sclerae, conjunctivae clear. ENT: Nasal septum midline, oral mucosa moist. Neck supple, no JVD noticed. Respiratory: Bilaterally clear breath sounds. No use of accessory muscles of respiration. No adventitious breath sounds. Cardiovascular: S1, S2 heard. No murmurs or gallops. Abdomen: Sof and nondistended. Bowel sounds positive in all 4 quadrants. Left lower quadrant tenderness. Genitourinary: Deferred. Extremities: No cyanosis, no clubbing, no edema. Peripheral pulses palpable. Neurologic: Cranial nerves II through XII grossly intact. The patient is awake, alert, and oriented. Skin: Normal skin turgor. No skin rashes. Results Result Diagram: 01/24/17 0455 01/24/17 0455 Results 24 hrs Laboratory Tests Test 01/24/17 04:55 White Blood Count 7.5 Red Blood Count 3.61 L Hemoglobin 11.1 L Hematocrit 31.9 L Mean Corpuscular Volume 88.4 Mean Corpuscular Hemoglobin 30.7 Mean Corpuscular Hemoglobin Concent 34.8 Red Cell Distribution Width 11.8 Platelet Count 170 Mean Platelet Volume 12.3 H Neutrophils % 54.0 Lymphocytes % 37.8 Monocytes % 6.3 Eosinophils % 0.9 Basophils % 0.5 Nucleated Red Blood Cells % 0.0 Neutrophils # 4.1 Lymphocytes # 2.8 Monocytes # 0.5 Eosinophils # 0.1 Basophils # 0.0 Nucleated Red Blood Cells # 0.0 Sodium Level 143 Potassium Level 3.9 Chloride Level 107 Carbon Dioxide Level 26 Anion Gap 14 Blood Urea Nitrogen 9 Creatinine 0.73 Glucose Level 88 Calcium Level 8.5 Phosphorus Level 3.5 Magnesium Level 1.9 Total Bilirubin 0.5 Direct Bilirubin 0.00 Indirect Bilirubin 0.5 Aspartate Amino Transf (AST/SGOT) 24 Alanine Aminotransferase (ALT/SGPT) 29 Alkaline Phosphatase 53 Total Protein 6.4 Albumin 3.4 Globulin 3.00 Albumin/Globulin Ratio 1.13 Thyroid Stimulating Hormone (TSH) 3.070 Free Thyroxine 1.35 Medications Medications Current Medications Ondansetron HCl (Zofran Inj) 4 mg Q6H PRN IV NAUSEA AND/OR VOMITING; Start 01/21/17 at 15:00 Acetaminophen (Tylenol Supp) 650 mg Q6H PRN [place] PAIN LEVEL 1-3 OR FEVER; Start 01/21/17 at 15:00 Bisacodyl (Dulcolax Supp) 10 mg DAILY PRN [place] CONSTIPATION; Start 01/21/17 at 15 :00 Famotidine 20 mg 20 mg Q12 IV Last administered on 01/24/17 09:19; Admin Dose 20 MG; Start 01/21/17 at 21:00 Ciprofloxacin/ Dextrose 200 ml @ 200 mls/hr Q12 IVPB Last administered on 01/24 09:19; Admin Dose 200 MLS/HR; Start 01/21/17 at 21:00 Metronidazole 100 ml @ 100 mls/hr Q8 IVPB Last administered on 01/24/17 05:22 ; Admin Dose 100 MLS/HR; Start 01/21/17 at 22:00 Potassium Chloride/Sodium Chloride (NS-KCl 20 Meq) 1,000 ml @ 75 mls/hr [id number] IV Last administered on 01/24/17 12:04; Admin Dose 75 MLS/HR; Start 01/22/17 at 11:00 Morphine Sulfate (morphine) 2 mg Q4H PRN IV pain Last administered on 16:29; Admin Dose 2 MG; Start 01/22/17 at 11:00 Hydrochlorothiazide (Hydrochlorothiazide) 25 mg DAILY@06 PO Last administered on 01/24/17 05:22; Admin Dose 25 MG; Start 01/22/17 at 11:00 KEVIN DEVINE NP Jan 24, 2017 12:38
[2017-01-24] MEDS ORDERED: DOCUSATE SODIUM 100 MG CAP PO PRN (13:30)
[2017-01-24] MEDS: POLYETHYLENE GLYCOL 17 GM PACKET PO SCH ×2 (13:56→20:48)
[2017-01-24 14:00] VITALS: BP 157/79; RESP 18
[2017-01-24 20:41] VITALS: BP 145/81; RESP 20
[2017-01-24] MEDS: FAMOTIDINE 20 MG TAB PO SCH (20:48)
[2017-01-24] MEDS ORDERED: ACETAMINOPHEN 325 MG TAB PO ONE (21:00)
[2017-01-25 02:08] VITALS: BP 138/67; RESP 18
[2017-01-25] MEDS: metroNIDAZOLE 500 MG/NS (PMX) 100 ML IVPB SCH ×2 (06:00→06:05)
[2017-01-25] MEDS: HYDROCHLOROTHIAZIDE 25 MG TAB PO SCH (06:05)
[2017-01-25] MEDS: LEVOTHYROXINE 50 MCG TAB PO SCH (06:05)
[2017-01-25 07:47] VITALS: BP 129/72; RESP 18
[2017-01-25] MEDS: CIPROFLOXACIN 400MG/D5W 200 ML IVPB SCH (10:15)
[2017-01-25] MEDS: FAMOTIDINE 20 MG TAB PO SCH (10:17)
[2017-01-25] MEDS: POLYETHYLENE GLYCOL 17 GM PACKET PO SCH (10:18)
--- NOTE | 2017-01-25 11:34 | PDOCDIS ---
Discharge Instructions CONDITION Patient Condition: Stable HOME CARE INSTRUCTIONS: Diet Instructions: Regular FOLLOW UP/APPOINTMENTS Follow-up Plan 1.Follow up with primary care physician in 1 week If you don't have one please let someone know, we can give you resources that may help you pick one. You may also call your insurance company to assign one to you. Review your medication list with your nurse before leaving and if you need new prescriptions please let your nurse know. I may have made changes to your home medications or given you new prescriptions, please let your primary doctor know as well. Stay compliant with your medications and report any side effects to your PCP or pharmacist. Return to the ER if you have any concerns and cannot reach your doctors or call your insurance company, they usually have a nurse that can help you. 2. Call 911 or go to the nearest emergency room if experiencing loss of consciousness, dizziness, chest pain, shortness of breath, vomiting/abdominal pain, speech difficulties, motor weakness or any unusual symptoms. ABE PELAYO NP Jan 25, 2017 11:33
[2017-01-25] MEDS ORDERED: METR500T14 PO (11:38)
[2017-01-25] MEDS ORDERED: CIPR500T4 PO (11:38)
[2017-01-25] MEDS ORDERED: DOCU-144 PO (11:53)
--- NOTE | 2017-01-25 11:54 | DS ---
Date/Time of Note Date/Time of Note DATE: 01/25/17 TIME: 11:54 Discharge Summary Admission/Discharge Info Admit Date/Time Jan 21, 2017 at 16:04 Discharge Date/Time Discharge Diagnosis 1. Acute diverticulitis of the sigmoid colon. Symptoms resolved. 2. Essential hypertension. 3. Hypothyroidism. Patient Condition: Stable Procedures 01/21/2017. CT abdomen and pelvis. IMPRESSION: 1. Acute diverticulitis involving the proximal sigmoid colon. No evidence of associated abscess or free intraperitoneal air. 2. Small hiatal hernia. Hospital Course This is a 61-year-old [facility] female with a past medical history hypertension , hypothyroidism, GI bleed with internal and external hemorrhoids, diverticulosis of the colon, who was admitted for left upper quadrant and epigastric painx 1 day duration who found to have acute diverticulitis by CT imaging in the emergency room. Apparently, patient had a colonoscopy done on here at [facility] by and was on treatment for hemorrhoids. Patient was treated with bowel rest, Cipro plus Flagyl, IV fluids and pain medications. She was continued on her home medications. Patient's condition is improved. She was then started on a diet and was advanced to regular and tolerated well. She did not have any bleeding episodes. She remained afebrile. At this time, there is no further inpatient workup indicated and patient is medically stable for discharge with outpatient follow-up. Disposition: Patient will be discharged home. Patient and family verbalized discharge instructions. Approximately 60 minutes was spent in coordinating the discharge on this patient. Patient is in collaboration with Dr. Velasco. Home Meds Active Scripts Docusate Sodium* (Colace*) 100 Mg Capsule, 100 MG PO BID, #60 CAP Prov:PELAYO,ABE V. [employer] 01/25/17 Metronidazole* (Metronidazole*) 500 Mg Tablet, 500 MG PO Q8 for 5 Days, #15 TAB Prov:PELAYO,ABE V. [employer]ER 01/25/17 Ciprofloxacin Hcl* (Ciprofloxacin Hcl*) 500 Mg Tablet, 500 MG PO BID, #10 TAB Prov:PELAYO,ABE V. [employer] 01/25/17 Hydrocodone/Acetaminophen (Baring 5-325 Tablet) 1 Each Tablet, 1 TAB PO Q6H Y for PAIN, #20 TAB Prov:ADRIANNE ALVAREZ 01/21/17 Reported Medications Levothyroxine Sodium* (Levothyroxine Sodium*) 50 Mcg Tablet, 50 MCG PO BEFORE BREAKFAST, #30 TAB 01/21/17 Hydrochlorothiazide* (Hydrochlorothiazide*) 25 Mg Tab, 25 MG PO DAILY, #30 TAB 01/21/17 Discontinued Reported Medications [Amlodipine] No Conflict Check 01/19/17 [Levothyroxine] No Conflict Check 01/19/17 [Hydrochlorothiazide] No Conflict Check 01/19/17 [Atorvastatin] No Conflict Check 01/19/17 Discontinued Scripts Metronidazole* (Metronidazole*) 500 Mg Tablet, 500 MG PO BID, #20 TAB Prov:ADRIANNE ALVAREZ 01/21/17 Ciprofloxacin Hcl* (Ciprofloxacin Hcl*) 500 Mg Tablet, 500 MG PO BID for 10 Days , TAB Prov:ADRIANNE ALVAREZ 01/21/17 Follow-up Plan 1.Follow up with primary care physician in 1 week If you don't have one please let someone know, we can give you resources that may help you pick one. You may also call your insurance company to assign one to you. Review your medication list with your nurse before leaving and if you need new prescriptions please let your nurse know. I may have made changes to your home medications or given you new prescriptions, please let your primary doctor know as well. Stay compliant with your medications and report any side effects to your PCP or pharmacist. Return to the ER if you have any concerns and cannot reach your doctors or call your insurance company, they usually have a nurse that can help you. 2. Call 911 or go to the nearest emergency room if experiencing loss of consciousness, dizziness, chest pain, shortness of breath, vomiting/abdominal pain, speech difficulties, motor weakness or any unusual symptoms. Primary Care Provider Not On Staff Doctor Pending Labs Laboratory Tests Test 01/25/17 04:55 White Blood Count 7.310^3/ul (4.8-10.8) Red Blood Count 4.0010^6/ul (4.20-5.40) Hemoglobin 11.8g/dl (12.0-16.0) Hematocrit 34.9% (37.0-47.0) Mean Corpuscular Volume 87.3fl (82.0-101.0) Mean Corpuscular Hemoglobin 29.5pg (29.0-33.0) Mean Corpuscular Hemoglobin Concent 33.8g/dl (32.0-37.0) Red Cell Distribution Width 11.9% (11.5-14.5) Platelet Count 82570^3/UL (140-415) Mean Platelet Volume 12.4fl (7.4-10.4) Neutrophils % 57.6% (39.0-77.0) Lymphocytes % 34.2% (15.0-51.0) Monocytes % 6.3% (0.0-11.0) Eosinophils % 1.0% (0.0-7.0) Basophils % 0.6% (0.0-2.0) Nucleated Red Blood Cells % 0.0/100WBC (0.0-0.0) Neutrophils # 4.210^3/ul (1.6-7.5) Lymphocytes # 2.510^3/ul (0.8-2.9) Monocytes # 0.510^3/ul (0.3-0.9) Eosinophils # 0.110^3/ul (0.0-0.5) Basophils # 0.010^3/ul (0.0-0.1) Nucleated Red Blood Cells # 0.010^3/ul (0.0-0.0) Sodium Level 141mmol/L (135-144) Potassium Level 3.6mmol/L (3.5-5.1) Chloride Level 105mmol/L (97-110) Carbon Dioxide Level 29mmol/L (21-31) Anion Gap 11 (8-16) Blood Urea Nitrogen 11mg/dl (7-20) Creatinine 0.73mg/dl (0.44-1.00) Glucose Level 89mg/dl (70-220) Calcium Level 9.2mg/dl (8.4-10.2) Phosphorus Level 4.5mg/dl (2.5-4.9) Magnesium Level 1.9mg/dl (1.7-2.5) ABE PELAYO NP Jan 25, 2017 11:54 ABE PELAYO NP Jan 25, 2017 11:54
--- NOTE | 2017-01-25 11:54 | DS ---
Date/Time of Note Date/Time of Note DATE: 01/25/17 TIME: 11:54 Discharge Summary Admission/Discharge Info Admit Date/Time Jan 21, 2017 at 16:04 Discharge Date/Time Discharge Diagnosis 1. Acute diverticulitis of the sigmoid colon. Symptoms resolved. 2. Essential hypertension. 3. Hypothyroidism. Patient Condition: Stable Procedures 01/21/2017. CT abdomen and pelvis. IMPRESSION: 1. Acute diverticulitis involving the proximal sigmoid colon. No evidence of associated abscess or free intraperitoneal air. 2. Small hiatal hernia. Hospital Course This is a 61-year-old [facility] female with a past medical history hypertension , hypothyroidism, GI bleed with internal and external hemorrhoids, diverticulosis of the colon, who was admitted for left upper quadrant and epigastric painx 1 day duration who found to have acute diverticulitis by CT imaging in the emergency room. Apparently, patient had a colonoscopy done on here at [facility] by and was on treatment for hemorrhoids. Patient was treated with bowel rest, Cipro plus Flagyl, IV fluids and pain medications. She was continued on her home medications. Patient's condition is improved. She was then started on a diet and was advanced to regular and tolerated well. She did not have any bleeding episodes. She remained afebrile. At this time, there is no further inpatient workup indicated and patient is medically stable for discharge with outpatient follow-up. Disposition: Patient will be discharged home. Patient and family verbalized discharge instructions. Approximately 60 minutes was spent in coordinating the discharge on this patient. Patient is in collaboration with Dr. Velasco. Home Meds Active Scripts Docusate Sodium* (Colace*) 100 Mg Capsule, 100 MG PO BID, #60 CAP Prov:PELAYO,ABE V. [employer]PER[employer] 01/25/17 Metronidazole* (Metronidazole*) 500 Mg Tablet, 500 MG PO Q8 for 5 Days, #15 TAB Prov:PELAYO,ABE V. [employer] 01/25/17 Ciprofloxacin Hcl* (Ciprofloxacin Hcl*) 500 Mg Tablet, 500 MG PO BID, #10 TAB Prov:PELAYO,ABE V. [employer] 01/25/17 Hydrocodone/Acetaminophen ([place] 5-325 Tablet) 1 Each Tablet, 1 TAB PO Q6H Y for PAIN, #20 TAB Prov:ADRIANNE ALVAREZ 01/21/17 Reported Medications Levothyroxine Sodium* (Levothyroxine Sodium*) 50 Mcg Tablet, 50 MCG PO BEFORE BREAKFAST, #30 TAB 01/21/17 Hydrochlorothiazide* (Hydrochlorothiazide*) 25 Mg Tab, 25 MG PO DAILY, #30 TAB 01/21/17 Discontinued Reported Medications [Amlodipine] No Conflict Check 01/19/17 [Levothyroxine] No Conflict Check 01/19/17 [Hydrochlorothiazide] No Conflict Check 01/19/17 [Atorvastatin] No Conflict Check 01/19/17 Discontinued Scripts Metronidazole* (Metronidazole*) 500 Mg Tablet, 500 MG PO BID, #20 TAB Prov:ADRIANNE ALVAREZ 01/21/17 Ciprofloxacin Hcl* (Ciprofloxacin Hcl*) 500 Mg Tablet, 500 MG PO BID for 10 Days , TAB Prov:ADRIANNE ALVAREZ 01/21/17 Follow-up Plan 1.Follow up with primary care physician in 1 week If you don't have one please let someone know, we can give you resources that may help you pick one. You may also call your insurance company to assign one to you. Review your medication list with your nurse before leaving and if you need new prescriptions please let your nurse know. I may have made changes to your home medications or given you new prescriptions, please let your primary doctor know as well. Stay compliant with your medications and report any side effects to your PCP or pharmacist. Return to the ER if you have any concerns and cannot reach your doctors or call your insurance company, they usually have a nurse that can help you. 2. Call 911 or go to the nearest emergency room if experiencing loss of consciousness, dizziness, chest pain, shortness of breath, vomiting/abdominal pain, speech difficulties, motor weakness or any unusual symptoms. Primary Care Provider Not On Staff Doctor Pending Labs Laboratory Tests Test 01/25/17 04:55 White Blood Count 7.310^3/ul (4.8-10.8) Red Blood Count 4.0010^6/ul (4.20-5.40) Hemoglobin 11.8g/dl (12.0-16.0) Hematocrit 34.9% (37.0-47.0) Mean Corpuscular Volume 87.3fl (82.0-101.0) Mean Corpuscular Hemoglobin 29.5pg (29.0-33.0) Mean Corpuscular Hemoglobin Concent 33.8g/dl (32.0-37.0) Red Cell Distribution Width 11.9% (11.5-14.5) Platelet Count 75890^3/UL (140-415) Mean Platelet Volume 12.4fl (7.4-10.4) Neutrophils % 57.6% (39.0-77.0) Lymphocytes % 34.2% (15.0-51.0) Monocytes % 6.3% (0.0-11.0) Eosinophils % 1.0% (0.0-7.0) Basophils % 0.6% (0.0-2.0) Nucleated Red Blood Cells % 0.0/100WBC (0.0-0.0) Neutrophils # 4.210^3/ul (1.6-7.5) Lymphocytes # 2.510^3/ul (0.8-2.9) Monocytes # 0.510^3/ul (0.3-0.9) Eosinophils # 0.110^3/ul (0.0-0.5) Basophils # 0.010^3/ul (0.0-0.1) Nucleated Red Blood Cells # 0.010^3/ul (0.0-0.0) Sodium Level 141mmol/L (135-144) Potassium Level 3.6mmol/L (3.5-5.1) Chloride Level 105mmol/L (97-110) Carbon Dioxide Level 29mmol/L (21-31) Anion Gap 11 (8-16) Blood Urea Nitrogen 11mg/dl (7-20) Creatinine 0.73mg/dl (0.44-1.00) Glucose Level 89mg/dl (70-220) Calcium Level 9.2mg/dl (8.4-10.2) Phosphorus Level 4.5mg/dl (2.5-4.9) Magnesium Level 1.9mg/dl (1.7-2.5) ABE PELAYO NP Jan 25, 2017 11:54 ABE PELAYO NP Jan 25, 2017 11:54
--- NOTE | 2017-01-25 11:54 | DS ---
Date/Time of Note Date/Time of Note DATE: 01/25/17 TIME: 11:54 Discharge Summary Admission/Discharge Info Admit Date/Time Jan 21, 2017 at 16:04 Discharge Date/Time Discharge Diagnosis 1. Acute diverticulitis of the sigmoid colon. Symptoms resolved. 2. Essential hypertension. 3. Hypothyroidism. Patient Condition: Stable Procedures 01/21/2017. CT abdomen and pelvis. IMPRESSION: 1. Acute diverticulitis involving the proximal sigmoid colon. No evidence of associated abscess or free intraperitoneal air. 2. Small hiatal hernia. Hospital Course This is a 61-year-old [facility] female with a past medical history hypertension , hypothyroidism, GI bleed with internal and external hemorrhoids, diverticulosis of the colon, who was admitted for left upper quadrant and epigastric painx 1 day duration who found to have acute diverticulitis by CT imaging in the emergency room. Apparently, patient had a colonoscopy done on here at [facility] [place] by and was on treatment for hemorrhoids. Patient was treated with bowel rest, Cipro plus Flagyl, IV fluids and pain medications. She was continued on her home medications. Patient's condition is improved. She was then started on a diet and was advanced to regular and tolerated well. She did not have any bleeding episodes. She remained afebrile. At this time, there is no further inpatient workup indicated and patient is medically stable for discharge with outpatient follow-up. Disposition: Patient will be discharged home. Patient and family verbalized discharge instructions. Approximately 60 minutes was spent in coordinating the discharge on this patient. Patient is in collaboration with Dr. Velasco. Home Meds Active Scripts Docusate Sodium* (Colace*) 100 Mg Capsule, 100 MG PO BID, #60 CAP Prov:PELAYO,ABE V. [employer] 01/25/17 Metronidazole* (Metronidazole*) 500 Mg Tablet, 500 MG PO Q8 for 5 Days, #15 TAB Prov:PELAYO,ABE V. [employer] 01/25/17 Ciprofloxacin Hcl* (Ciprofloxacin Hcl*) 500 Mg Tablet, 500 MG PO BID, #10 TAB Prov:PELAYO,ABE V. [employer] 01/25/17 Hydrocodone/Acetaminophen ([place] 5-325 Tablet) 1 Each Tablet, 1 TAB PO Q6H Y for PAIN, #20 TAB Prov:ADRIANNE ALVAREZ 01/21/17 Reported Medications Levothyroxine Sodium* (Levothyroxine Sodium*) 50 Mcg Tablet, 50 MCG PO BEFORE BREAKFAST, #30 TAB 01/21/17 Hydrochlorothiazide* (Hydrochlorothiazide*) 25 Mg Tab, 25 MG PO DAILY, #30 TAB 01/21/17 Discontinued Reported Medications [Amlodipine] No Conflict Check 01/19/17 [Levothyroxine] No Conflict Check 01/19/17 [Hydrochlorothiazide] No Conflict Check 01/19/17 [Atorvastatin] No Conflict Check 01/19/17 Discontinued Scripts Metronidazole* (Metronidazole*) 500 Mg Tablet, 500 MG PO BID, #20 TAB Prov:ADRIANNE ALVAREZ 01/21/17 Ciprofloxacin Hcl* (Ciprofloxacin Hcl*) 500 Mg Tablet, 500 MG PO BID for 10 Days , TAB Prov:ADRIANNE ALVAREZ 01/21/17 Follow-up Plan 1.Follow up with primary care physician in 1 week If you don't have one please let someone know, we can give you resources that may help you pick one. You may also call your insurance company to assign one to you. Review your medication list with your nurse before leaving and if you need new prescriptions please let your nurse know. I may have made changes to your home medications or given you new prescriptions, please let your primary doctor know as well. Stay compliant with your medications and report any side effects to your PCP or pharmacist. Return to the ER if you have any concerns and cannot reach your doctors or call your insurance company, they usually have a nurse that can help you. 2. Call 911 or go to the nearest emergency room if experiencing loss of consciousness, dizziness, chest pain, shortness of breath, vomiting/abdominal pain, speech difficulties, motor weakness or any unusual symptoms. Primary Care Provider Not On Staff Doctor Pending Labs Laboratory Tests Test 01/25/17 04:55 White Blood Count 7.310^3/ul (4.8-10.8) Red Blood Count 4.0010^6/ul (4.20-5.40) Hemoglobin 11.8g/dl (12.0-16.0) Hematocrit 34.9% (37.0-47.0) Mean Corpuscular Volume 87.3fl (82.0-101.0) Mean Corpuscular Hemoglobin 29.5pg (29.0-33.0) Mean Corpuscular Hemoglobin Concent 33.8g/dl (32.0-37.0) Red Cell Distribution Width 11.9% (11.5-14.5) Platelet Count 93495^3/UL (140-415) Mean Platelet Volume 12.4fl (7.4-10.4) Neutrophils % 57.6% (39.0-77.0) Lymphocytes % 34.2% (15.0-51.0) Monocytes % 6.3% (0.0-11.0) Eosinophils % 1.0% (0.0-7.0) Basophils % 0.6% (0.0-2.0) Nucleated Red Blood Cells % 0.0/100WBC (0.0-0.0) Neutrophils # 4.210^3/ul (1.6-7.5) Lymphocytes # 2.510^3/ul (0.8-2.9) Monocytes # 0.510^3/ul (0.3-0.9) Eosinophils # 0.110^3/ul (0.0-0.5) Basophils # 0.010^3/ul (0.0-0.1) Nucleated Red Blood Cells # 0.010^3/ul (0.0-0.0) Sodium Level 141mmol/L (135-144) Potassium Level 3.6mmol/L (3.5-5.1) Chloride Level 105mmol/L (97-110) Carbon Dioxide Level 29mmol/L (21-31) Anion Gap 11 (8-16) Blood Urea Nitrogen 11mg/dl (7-20) Creatinine 0.73mg/dl (0.44-1.00) Glucose Level 89mg/dl (70-220) Calcium Level 9.2mg/dl (8.4-10.2) Phosphorus Level 4.5mg/dl (2.5-4.9) Magnesium Level 1.9mg/dl (1.7-2.5) ABE PELAYO NP Jan 25, 2017 11:54 ABE PELAYO NP Jan 25, 2017 11:54
== END 2017-01-25 13:06 | disposition home or self-care (01) | DRG 392 ==
LOC: E/R 09:34 → PP2 16:04
PROVIDERS: ADMIT Internal Medicine; ATTEND Internal Medicine
DX: K57.32 Diverticulitis of large intestine without perforation or abscess without bleeding (principal); I10 Essential (primary) hypertension; K64.4 Residual hemorrhoidal skin tags; E03.9 Hypothyroidism, unspecified; K64.8 Other hemorrhoids
CPT/HCPCS: 74177; 80048; 80053; 80061; 81001; 82150; 83036; 83690; 83735; 84100; 84439; 84443; 84481; 84484; 85025; 85610; 85730; 87040; 87086; 90686; 93005; 96374; 96375; 96376; J0744; J1170; J1885; J2270; J2405; J3480; J7030; Q9967